=== PATIENT | male | born 1975 | race African-American/Black ===

== ENCOUNTER 2017-03-08 14:22 | Inpatient (IN) | payer OTHER ==
[~2017-03-08] VITALS: Ht 182.9 cm; Wt 84.0 kg
[~2017-03-08 14:22] MED LIST: CIPRO500 MG OR; FLEXERIL PO; LORTAB 5 OR; NAPROSYN500 MG PO
--- NOTE | 2017-03-08 14:24 | NUR ---
TO ROOM 6
[2017-03-08 15:16] LABS: HEMATOCRIT 45.1 % (39.0-50.0); IMMATURE GRANULOCYTES 0.3 % (0.0-1.0); MEAN CELL VOLUME 86.2 fL CALC (80.0-100.0); MEAN CORPUSCULAR HGB 28.7 pG CALC (26.0-32.0); MEAN CORPUSCULAR HGB CONC 33.3 g/L CALC (32.0-36.0); NEUT# 3.78 thou/uL (1.82-7.42); RED BLOOD COUNT 5.23 mill/uL (4.70-6.10); RED CELL DISTRI WIDTH 13.2 % (11.5-15.5)
[2017-03-08 15:35] LABS: ALBUMIN 4.7 g/dL (3.2-5.0); ALKALINE PHOSPHATASE 89 u/l (38-126); AMYLASE 51 u/l (30-110); BILIRUBIN, TOTAL 0.5 mg/dL (0.0-1.4); BUN 8 mg/dL (9-20); BUN/CREATININE RATIO 9 (12-20 (CALC)); CALCIUM 9.9 mg/dL (8.4-10.2); CARBON DIOXIDE 27 mmol/l (22-30); CREATININE 0.9 mg/dL (0.7-1.3); GFR > 60 ML/MIN (>=60 (CALC)); GFR FOR AFR.AMER. > 60 ML/MIN (>=60 (CALC)); GLUCOSE 97 mg/dL (75-110); LIPASE 94 u/l (23-300); POTASSIUM 4.1 mmol/l (3.5-5.1); SGOT/AST 29 u/l (17-59); SGPT/ALT 19 u/l (21-72); SODIUM 142 mmol/l (137-146); TOTAL PROTEIN 7.8 g/dL (6.3-8.2)
[2017-03-08 15:36] LABS: ANION GAP 18 (6-22 (CALC)); CHLORIDE 101 mmol/l (95-108)
--- NOTE | 2017-03-08 15:40 | NUR ---
PT STATES FEELS MUCH BETTER AFTER GI COCKTAIL AND ASPIRIN.
[2017-03-08 15:47] LABS: BARBITURATES NEGATIVE (NEGATIVE); COCAINE NEGATIVE (NEGATIVE); METHADONE NEGATIVE (NEGATIVE); MYOGLOBIN 33 ng/mL (0 - 121); OXCYCODONE NEGATIVE (NEGATIVE); TETRAHYDROCANNABIONOL NEGATIVE (NEGATIVE); TRICYLIC ANTIDEPRESSANTS NEGATIVE (NEGATIVE)
--- NOTE | 2017-03-08 16:52 | NUR ---
PATIENT RESTING AWAITNG LAB AND RADIOLOGY RESULTS PATENT STATES PAIN 3 ON 0-10 SCALE. PATIENT DENIES ANY SOB AT THIS TIME
--- NOTE | 2017-03-08 17:28 | NUR ---
patient resting awaiting lab and radiology results patient states pain 3 on 0-10 scale
--- NOTE | 2017-03-08 17:49 | NUR ---
PHYSICIAN AT BEDSIDE GIVING RADIOLOGY RESULTS TO PATIENT. PATIENT VERBALIZES UNDERSTANDING OF RESULTS
[2017-03-08 18:18] LABS: URINE BILIRUBIN - DIPSTICK NEGATIVE (NEGATIVE); URINE BLOOD DIPSTICK NEGATIVE (NEGATIVE); URINE CLARITY CLEAR; URINE COLOR YELLOW; URINE GLUCOSE - DIPSTICK NEGATIVE (NEGATIVE); URINE KETONE NEGATIVE (NEGATIVE); URINE LEUK ESTERASE NEGATIVE (NEGATIVE); URINE NITRITE - DIPSTICK NEGATIVE (Negative); URINE PROTEIN - DIPSTICK NEGATIVE (NEG-TRACE); URINE SPECIFIC GRAVITY <=1.005; URINE UROBILINOGEN - DIPSTICK 0.2 E.U./dL (0.2)
--- NOTE | 2017-03-08 18:34 | NUR ---
REPORT CALLED TO ICU AND PATIENT TRANSPORTED
--- NOTE | 2017-03-08 18:50 | NUR ---
PT. ARRIVES BY STRETCHER FROM ER. AWAKE, ALERT, ORIENTED X 3. NO DISTRESS. RESPS EVEN AND UNLABORED. SKIN WARM AND DRY. AMBULATORY FROM ER STRETCHER TO STANDING SCALE AND THEN TO ICU BED WITHOUT DIFFICULTY OR ASSISTANCE.
[2017-03-08 19:00] VITALS: BP 148/89
[2017-03-08 19:15] VITALS: BP 152/83
[2017-03-08 19:30] VITALS: BP 153/67
[2017-03-08 19:45] VITALS: BP 137/75
[2017-03-08 20:00] VITALS: BP 135/63
--- NOTE | 2017-03-08 20:30 | NUR ---
PT. AWAKE, ALERT, ORIENTED. NO DISTRESS. SPO2 100% ON 2L HUMIDIFIED NC. DENIES COMPLAINTS OF CP OR SOB AT THIS TIME. MAE. ROUSE. SIG OTHER AT BEDSIDE AT THIS TIME WITH MULTIPLE FAMILY MEMBERS. UPDATED ON PLAN OF CARE. DENIES NEEDS AT THIS TIME. CALL LIGHT WITHIN REACH. WILL CONTINUE TO MONITOR.
[2017-03-08 22:00] VITALS: BP 144/83
--- NOTE | 2017-03-08 22:15 | NUR ---
PT. REMAINS AWAKE, ALERT, ORIENTED X 3. NO DISTRESS. SIG OTHER REMAINS AT BEDSIDE AT THIS TIME. RESPS EVEN AND UNLABORED. REMAINS SINUS RHYTHM ON THE MONITOR.
[2017-03-09] VITALS (11 sets, daily range): BP systolic 113–149; BP diastolic 54–88
--- NOTE | 2017-03-09 00:12 | NUR ---
PT. REPORTS MINOR DISCOMFORT TO CENTER OF CHEST AT PREVIOUS SITE OF DISCOMFORT. REMAINS STABLE IN SINUS RHYTHM. NO ECTOPY. RESPS EVEN AND UNLABORED. WATER REFILLED AT THIS TIME. DENIES COMPLAINT OR OTHER NEEDS. CALL LIGHT WITHIN REACH.
--- NOTE | 2017-03-09 01:55 | NUR ---
PT. RESTING IN BED WITH EYES CLOSED IN NO DISTRESS. RESPS EVEN AND UNLABORED. SINUS RHYTHM 60'S. SPO2 IS 100% ON 2L NC. VSS. SIG OTHER REMAINS AT BEDSIDE AT THIS TIME.
--- NOTE | 2017-03-09 03:45 | NUR ---
CONTINUES TO REST IN BED IN NO DISTRESS. BP AND HR STABLE. REMAINS 100% ON 2L NC HUMIDIFIED 02. CALL LIGHT WITHIN REACH. WILL CONTINUE TO MONITOR.
--- NOTE | 2017-03-09 05:30 | NUR ---
PT. AWAKE, ALERT, ORIENTED X 3. PT. STATES WITH HIS CHEST DISCOMFORT IMPROVED. DENIES SOB. SPO2 REMAINS 100% ON 2L HUMIDIFIED O2. NO RESP DISTRESS NOTED. HR AND BP STABLE AT THIS TIME. SINUS IN THE 60'S. CALL LIGHT WITHIN REACH. UPDATED ON PLAN OF CARE.
--- NOTE | 2017-03-09 07:10 | NUR ---
PT SITTING UP IN BED WATCHING TV, DENIES AND SOB OF CHEST PAIN/ PRESSURE, PT A&O X3, PERRL, HR 73, RESP. 18, BP 119/55, O2 100% ON RA, LUNG SOUNDS CLEAR IN ALL PIKE, 20G RAC IV SALINE LOCKED, SIGNIFICANT OTHER REMAINS AT BEDSIDE, AM ASSESSMENT COMPLETE SEE INTERVENTIONS, SAFETY MEASURES REINFORCED, CALL PURDY WITHIN REACH
[2017-03-09 07:31] LABS: ANION GAP 14 (6-22 (CALC)); BUN 6 mg/dL (9-20); BUN/CREATININE RATIO 7 (12-20 (CALC)); CALCIUM 9.3 mg/dL (8.4-10.2); CARBON DIOXIDE 29 mmol/l (22-30); CHLORIDE 100 mmol/l (95-108); CREATININE 0.8 mg/dL (0.7-1.3); GFR > 60 ML/MIN (>=60 (CALC)); GFR FOR AFR.AMER. > 60 ML/MIN (>=60 (CALC)); GLUCOSE 103 mg/dL (75-110); POTASSIUM 3.7 mmol/l (3.5-5.1); SODIUM 140 mmol/l (137-146)
--- NOTE | 2017-03-09 07:35 | NUR ---
SETUP ASSISTANCE OFFERED WITH AM MEAL TRAY
[2017-03-09 07:44] LABS: CHOLESTEROL HDL RATIO 2.9 (<4.4 (CALC))
--- NOTE | 2017-03-09 08:10 | NUR ---
PT SITTING UP IN BED, VERBALIZES NO COMPLAINTS, REMINDED TO CALL FOR ASSISTANCE, CALL PURDY WITHIN REACH
[2017-03-09 08:15] LABS: TSH, 3RD GENERATION 3.22 uIU/mL (0.47 - 4.68)
--- NOTE | 2017-03-09 09:15 | NUR ---
DR SWEET AT BEDSIDE DISCUSSING PLAN OF CARE
--- NOTE | 2017-03-09 10:20 | NUR ---
PT LAYING IN BED TALKING TO VISITOR WHO IS AT BEDSIDE, VERBALIZES NO COMPLAINTS, CALL PURDY WITHIN REACH
--- NOTE | 2017-03-09 11:30 | NUR ---
PT SITTING ON THE SIDE OF THE BED, TOLERATING WELL, SETUP ASSISTANCE OFFERED WITH LUNCH TRAY SETUP, PT REMINDED TO CALL FOR ASSISTANCE, CALL PURDY WITHIN REACH
--- NOTE | 2017-03-09 12:10 | NUR ---
PT SITTING UP IN BED WATCHING THE WEATHER OUT THE WINDOW, DENIES AND PAIN OR SOB, TOLERATED LUNCH WELL, CALL PURDY WITHIN REACH
--- NOTE | 2017-03-09 13:06 | NUR ---
SETUP ASSISTANCE PROVIDED FOR PT TO GET WASHED UP
--- NOTE | 2017-03-09 13:40 | NUR ---
PT TO US VIA WHEELCHAIR
--- NOTE | 2017-03-09 14:05 | NUR ---
PT RETURNED TO UNIT FROM US VIA WHEELCHAIR
--- NOTE | 2017-03-09 14:45 | NUR ---
PT TO US FOR ECHO VIA WHEELCHAIR
--- NOTE | 2017-03-09 15:45 | NUR ---
PT RETURNED TO THE UNIT VIA WHEELCHAIR
--- NOTE | 2017-03-09 16:45 | NUR ---
VISITORS AT BEDSIDE
--- NOTE | 2017-03-09 17:15 | NUR ---
SETUP ASSISTANCE OFFERED WITH DINNER TRAY
--- NOTE | 2017-03-09 18:45 | NUR ---
REPORT FROM Nuha WOODRUFF LPN. ASSUMED PT. CARE.
--- NOTE | 2017-03-09 19:10 | NUR ---
REPORT TO Rosey CAREY LPN.
--- NOTE | 2017-03-09 19:30 | NUR ---
PT ARRIVED TO UNIT VIA WHEELCHAIR WITH CATARINA SOLOMON. AMBULATED INDEPENDENTLY TO BED. FAMILY AT BEDSIDE. C/O MILD BURNING SENSATION AT MIDSTERNUM. RESPIRATIONS EVEN AND UNLABORED. ORIENTED TO ROOM. PLAN OF CARE DISCUSSED. PT ENCOURAGED TO VERBALIZE CONCERNS. STATES UNDERSTANDING. SAFETY MEASURES IN PLACE. CALL LIGHT REVIWED AND WITHIN REACH.
--- NOTE | 2017-03-10 00:31 | NUR ---
PT ASLEEP AT THIS TIME. DECLINED PRN SONATA. C/O OF CONSISTENT MILD BURNING SENSATION TO MIDSTERNUM. INSTRUCTED TO INFORM NURSE IF PAIN WORSENS. RESPIRATIONS EVEN AND UNLABORED. UP AD BRYNN TO BATHROOM INDEPENDENTLY. IV SITE APPEARS HEALTHY AND FLUSHES. ASSESSMENT WNL. SAFETY MEASURES IN PLACE. CALL LIGHT WITHIN REACH.
[2017-03-10 00:45] VITALS: BP 112/69; BP 121/62
--- NOTE | 2017-03-10 03:59 | NUR ---
PT ASLEEP AT THIS TIME. NO SIGNS OF DISTRESS NOTED. RESPIRATIONS EVEN AND UNLABORED. SAFETY MEASURES IN PLACE. CALL LIGHT WITHIN REACH.
[2017-03-10 05:20] VITALS: BP 126/75
--- NOTE | 2017-03-10 06:11 | NUR ---
PT REPORTED BLOOD TINGED SPUTUM AND NURSE OBSERVED SCANT AMOUNT OF SPUTUM WITH BLOOD. ORAL MUCOSA ASSESSED AND NO OPEN AREAS NOTED; PINK AND MOIST. WILL REPORT TO NEXT SHIFT AND CONTINUE TO MONITOR.
[2017-03-10 06:53] LABS: PROTHROMBIN TIME 11.2 SECONDS (9.0-12.5)
--- NOTE | 2017-03-10 07:20 | NUR ---
REPORT RECIEVED FROM MARIA LUISA MURPHY; PT RESTING IN BED TALKING ON CELL PHONE; NO S/S OF DISTRESS NOTED; PT STATES HE IS HAVING THE BURNING IN HIS CHEST THAT HE ORIGINALLY CAME TO ER FOR; AND COUGHING UP BLOOD TINGED SPUTUM; PT DENIES ANY NEED FOR PAIN MEDICATIONS AT THIS TIME; PT ALSO C/O NO BM FOR 3 DAYS; PT ENCOURAGED TO DRINK WARM PRUNE JUICE PROVIDED; PT DENIES ANY OTHER NEEDS AT THIS TIME; PT ENCOURAGED TO CALL IF PAIN WORSENS OR ANY OTHER NEEDS; CALL LIGHT WITHIN REACH; LIANE CONTINUE TO MONITOR
[2017-03-10 09:11] VITALS: BP 119/67
[2017-03-10] MEDS ORDERED: LEVAQUIN750 MG PO (12:11)
[2017-03-10 12:55] VITALS: BP 121/64
--- NOTE | 2017-03-10 14:25 | NUR ---
Discharge instructions given. Patient verbalizes understanding of same. Discharged in stable condition via Ambulatory to Home with family. All belongings sent with pt.
== END 2017-03-10 14:25 | disposition home or self-care (01) | DRG 175 ==
LOC: ENPENDDIS → ED 14:22 → ED-I 17:38 → ED 17:55 → ICU 17:56 → MS2 17:56 → ICU 03-09 19:13 → MS2 03-09 19:47
PROVIDERS: Emergency Medicine; ADMIT Internal Medicine; ATTEND Internal Medicine
DX: I26.99 Other pulmonary embolism without acute cor pulmonale (principal); J18.9 Pneumonia, unspecified organism; F17.210 Nicotine dependence, cigarettes, uncomplicated; F12.90 Cannabis use, unspecified, uncomplicated
CPT/HCPCS: J1650; Q9967

== ENCOUNTER 2020-11-09 09:28 | Emergency (ER) | payer BC, OTHER ==
[~2020-11-09] VITALS: Ht 182.9 cm; Wt 97.0 kg
[~2020-11-09 09:28] MED LIST changes: +LEVAQUIN750 MG PO
[2020-11-09] MEDS ORDERED: XARELTO20 MG PO (12:02)
[2020-11-09 13:40] VITALS: BP 132/76
== END 2020-11-09 13:55 | disposition home or self-care (01) | DRG 556 ==
LOC: ED 09:28
DX: M79.605 Pain in left leg (principal); Z86.718 Personal history of other venous thrombosis and embolism; Z79.01 Long term (current) use of anticoagulants; Z86.711 Personal history of pulmonary embolism

== ENCOUNTER 2024-12-06 22:32 | Emergency (ER) | payer MEDICARE, OTHER ==
[~2024-12-06] VITALS: Ht 182.9 cm; Wt 97.5 kg
[~2024-12-06 22:32] MED LIST changes: +XARELTO20 MG PO
[2024-12-07] MEDS ORDERED: AMOXICILLIN500 M2 PO (01:15)
[2024-12-07] MEDS ORDERED: AMOXICILLIN TRIHYDRATE 500 MG/CAP PO ONE (01:15)
[2024-12-07 01:35] VITALS: BP 136/93
== END 2024-12-07 01:40 | disposition home or self-care (01) ==
LOC: ED 22:32
DX: J40 Bronchitis, not specified as acute or chronic (principal); Z86.711 Personal history of pulmonary embolism; Z86.718 Personal history of other venous thrombosis and embolism; Z20.822 Contact with and (suspected) exposure to COVID-19

== ENCOUNTER 2025-01-05 12:32 | Emergency (ER) | payer MEDICARE, OTHER ==
[~2025-01-05] VITALS: Ht 182.9 cm; Wt 101.0 kg
[~2025-01-05 12:32] MED LIST changes: +AMOXICILLIN500 M2 PO
[2025-01-05 13:17] VITALS: BP 134/80
[2025-01-05 13:30] VITALS: BP 130/81
[2025-01-05 14:00] VITALS: BP 126/83
[2025-01-05] MEDS ORDERED: predniSONE 20 MG/TAB PO ONE (14:05)
[2025-01-05] MEDS ORDERED: PREDNISONE20 MG PO (14:13)
[2025-01-05 14:16] VITALS: BP 126/83
== END 2025-01-05 14:21 | disposition home or self-care (01) ==
LOC: ED 12:32
DX: M17.12 Unilateral primary osteoarthritis, left knee (principal); Z86.711 Personal history of pulmonary embolism; Z86.718 Personal history of other venous thrombosis and embolism